=== PATIENT | female | born 1950 | race Caucasian/White ===

== ENCOUNTER 2024-04-22 13:50 | Emergency (ER) | payer MEDICARE, OTHER ==
[2024-04-22] MEDS ORDERED: Ketorolac Tromethamine 30 MG (1 mL) VIAL ONE (14:59)
[2024-04-22] MEDS ORDERED: Lidocaine 4% Patch ONE (15:00)
[2024-04-22] MEDS ORDERED: Cyclobenzaprine 10 MG TAB ONE (15:00)
== END 2024-04-22 15:59 | disposition home or self-care (01) ==
LOC: ERS 13:50
DX: M54.41 Lumbago with sciatica, right side (principal); E11.9 Type 2 diabetes mellitus without complications; I10 Essential (primary) hypertension
CPT/HCPCS: 72100; 73502; J1885; 96372; 99283